=== PATIENT | male | born 1960 | race Asian ===

== ENCOUNTER 2024-02-03 21:34 | Inpatient (IN) | payer OTHER ==
[2024-02-03 21:43] VITALS: BMI 34.7
[2024-02-03] MEDS ORDERED: LACTATED RINGERS SOLUTION 1000 ML INFUS.BAG IV ONE (22:00)
[2024-02-03] MEDS ORDERED: ONDANSETRON 4 MG/2 ML VIAL ONE (22:14)
[2024-02-03] MEDS ORDERED: ACETAMINOPHEN INJECTION 100 ML IVPB ONE (22:14)
[2024-02-03 22:15] LABS: VENOUS BASE EXCESS 0.9 mmol/L (-2-2); VENOUS O2 SATURATION 43.8 % (70-80); VENOUS PCO2 41.3 mmHg (38-52); VENOUS PH 7.41 (7.310-7.410)
[2024-02-03] MEDS: ACETAMINOPHEN 1000 MG/100 ML BAG IVPB ONE (22:19)
[2024-02-03] MEDS: LACTATED RINGERS SOLUTION 1000 ML INFUS.BAG IV ONE (22:20)
[2024-02-03] MEDS: ONDANSETRON 4 MG/2 ML VIAL IVPUSH ONE (22:20)
[2024-02-03 22:21] LABS: BASO % 0.3 % (0-2.0); HEMATOCRIT 43.2 % (35.4-49); HEMOGLOBIN 14.5 GM/dL (11.7-16.9); LYMPH % 7.5 % (8-40); MCH 28.5 pg (25.7-33.7); MCHC 33.5 g/dl (32.0-35.9); MEAN CELL VOLUME 84.9 fl (80-96); MEAN PLT VOLUME 8.6 fl (7.5-11.1); MONO % 5.7 % (3.8-10.2); NEUT % 86.5 % (42.8-82.8); PLATELET COUNT 161 10^3/uL (134-434); RBC 5.09 M/mm3 (4.00-5.60); RDW 14.2 % (11.9-15.9); WHITE BLOOD COUNT 11.2 K/mm3 (4.0-10.0)
[2024-02-03 22:36] LABS: POTASSIUM 3.9 mmol/L (3.5-5.1)
[2024-02-03 22:38] LABS: ALBUMIN 3.8 g/dl (3.4-5.0); CALCIUM 9.1 mg/dL (8.5-10.1); INR 1.1 (0.83-1.09); PROTHROMBIN TIME (PATIENT) 12.6 SEC (9.7-13.0)
[2024-02-03 22:39] LABS: BLOOD UREA NITROGEN 18.1 mg/dL (7-18); MAGNESIUM 1.7 mg/dL (1.8-2.4)
[2024-02-03 22:41] LABS: ACTIVATED PTT 33.4 SECONDS (25.2-36.5)
[2024-02-03 22:42] LABS: CREATININE 1.4 mg/dL (0.55-1.3); PHOSPHOROUS 2.4 mg/dL (2.5-4.9)
[2024-02-03 22:43] LABS: BILIRUBIN,TOTAL 1.4 mg/dL (0.2-1); TOT PROT 7.5 g/dl (6.4-8.2)
[2024-02-03] MEDS ORDERED: NAPH,MB-DB/K PH,MBDB POWDER PACKET ONE (23:06)
[2024-02-03] MEDS ORDERED: MAGNESIUM SULFATE IN WATER 2 GM/50 ML IVPB IVPB ONE (23:06)
[2024-02-03 23:07] LABS: BILIRUBIN,DIRECT 0.4 mg/dL (0.0-0.2)
[2024-02-03] MEDS: NAPH,MB-DB/K PH,MBDB POWDER PACKET PO ONE (23:12)
[2024-02-03] MEDS: MAGNESIUM SULFATE IN WATER 2 GM/50 ML IVPB IVPB ONE (23:12)
[2024-02-04 00:03] LABS: EPI CELLS 14 /uL (0-25.1); HYALINE CASTS 6 /uL (0-3.1); PH,URINE 5.5 (5.0-8.0); URINE APPEARANCE CLEAR; URINE BACTERIA 5 /uL (0-1359); URINE BILIRUBIN NEGATIVE (NEGATIVE); URINE COLOR DK YELLOW; URINE GLUCOSE (UA) 3+ (NEGATIVE); URINE KETONE 1+ (NEGATIVE); URINE LEUK ESTERASE NEGATIVE (NEGATIVE); URINE NITRITE NEGATIVE (NEGATIVE); URINE PROTEIN 2+ (NEGATIVE); URINE RBC 13 /uL (0-23.9); URINE WBC 11 /uL (0-25.8)
[2024-02-04] MEDS ORDERED: ONDANSETRON 4 MG/2 ML VIAL IVPUSH PRN (00:43)
[2024-02-04] MEDS ORDERED: ACETAMINOPHEN INJECTION 100 ML IVPB ONE (03:15)
[2024-02-04] MEDS: ACETAMINOPHEN 1000 MG/100 ML BAG IVPB PRN (03:18)
[2024-02-04] MEDS: INSULIN ASPART SLIDING SCALE (NOVOLOG) 1 VIAL SQ SCH (06:12)
[2024-02-04 08:41] LABS: BASO % 0.3 % (0-2.0); EOS % 0.1 % (0-4.5); HEMATOCRIT 40.5 % (35.4-49); HEMOGLOBIN 13.5 GM/dL (11.7-16.9); LYMPH % 8.3 % (8-40); MCH 28.6 pg (25.7-33.7); MCHC 33.3 g/dl (32.0-35.9); MEAN CELL VOLUME 85.9 fl (80-96); MONO % 5.3 % (3.8-10.2); PLATELET COUNT 155 10^3/uL (134-434); RBC 4.71 M/mm3 (4.00-5.60); RDW 14.1 % (11.9-15.9); WHITE BLOOD COUNT 10.7 K/mm3 (4.0-10.0)
[2024-02-04 08:43] LABS: POTASSIUM 4.1 mmol/L (3.5-5.1)
[2024-02-04 08:49] LABS: CALCIUM 8.7 mg/dL (8.5-10.1)
[2024-02-04 08:50] LABS: ALBUMIN 3.1 g/dl (3.4-5.0); BLOOD UREA NITROGEN 18.4 mg/dL (7-18)
[2024-02-04 08:51] LABS: MAGNESIUM 2.2 mg/dL (1.8-2.4)
[2024-02-04 08:53] LABS: CREATININE 1.1 mg/dL (0.55-1.3); PHOSPHOROUS 2.6 mg/dL (2.5-4.9)
[2024-02-04 08:55] LABS: BILIRUBIN,TOTAL 1.2 mg/dL (0.2-1); TOT PROT 6.5 g/dl (6.4-8.2)
[2024-02-04 10:24] LABS: HIV INTERPRETATION NEGATIVE (NEGATIVE)
[2024-02-04] MEDS: ENOXAPARIN NA (PORCINE) 40 MG/0.4 ML DISP.SYRIN SQ SCH (11:33)
[2024-02-04] MEDS: TAMSULOSIN HCL 0.4 MG CAP PO SCH (11:33)
[2024-02-04] MEDS: ALLOPURINOL 300 MG TABLET (FP) PO SCH (11:33)
[2024-02-04] MEDS: INSULIN (LEVEMIR) 100 UNITS/ML UNITS SQ SCH (12:51)
[2024-02-04] MEDS: LOSARTAN POTASSIUM 50 MG TABLET PO SCH (15:30)
[2024-02-04] MEDS: LACTATED RINGERS SOLUTION 1,000 ML/1,000 ML INFUS.BAG IV SCH (15:30)
[2024-02-04] MEDS: ATORVASTATIN CA 40 MG TABLET (FP) PO SCH (21:53)
[2024-02-05] MEDS: LORazepam 2 MG/ML SDV VIAL IVPUSH ONE (01:25)
[2024-02-05] MEDS: MIDAZOLAM HCL 2 MG/2 ML SINGLE DOSE VIAL IVPUSH ONE (01:46)
[2024-02-05] MEDS: AMPICILLIN - 2 GM in SODIUM CHLORIDE 100 ML IVPB SCH (03:00)
[2024-02-05 09:57] LABS: BASO % 0.3 % (0-2.0); HEMATOCRIT 36.9 % (35.4-49); HEMOGLOBIN 12.4 GM/dL (11.7-16.9); LYMPH % 6.2 % (8-40); MCH 28.7 pg (25.7-33.7); MCHC 33.8 g/dl (32.0-35.9); MEAN PLT VOLUME 9.2 fl (7.5-11.1); MONO % 6.6 % (3.8-10.2); NEUT % 86.9 % (42.8-82.8); PLATELET COUNT 142 10^3/uL (134-434); RBC 4.34 M/mm3 (4.00-5.60); RDW 14.2 % (11.9-15.9); WHITE BLOOD COUNT 9.9 K/mm3 (4.0-10.0)
[2024-02-05 10:13] LABS: INR 1.1 (0.83-1.09); PROTHROMBIN TIME (PATIENT) 12.6 SEC (9.7-13.0)
[2024-02-05 10:34] LABS: CHLORIDE 98 mmol/L (98-107); POTASSIUM 3.8 mmol/L (3.5-5.1); SODIUM 133 mmol/L (136-145)
[2024-02-05 10:47] LABS: ALBUMIN 2.9 g/dl (3.4-5.0); BLOOD UREA NITROGEN 19.7 mg/dL (7-18); SGPT/ALT 28 U/L (13-61)
[2024-02-05 10:48] LABS: ANION GAP 12 mmol/L (4-13); CO2 23 mmol/L (21-32); GLUCOSE,RANDOM 256 mg/dL (74-106); MAGNESIUM 1.9 mg/dL (1.8-2.4)
[2024-02-05 10:49] LABS: BILIRUBIN,TOTAL 1.2 mg/dL (0.2-1); TOT PROT 6.2 g/dl (6.4-8.2)
[2024-02-05 10:50] LABS: ALK PHOS 68 U/L (45-117)
[2024-02-05 10:51] LABS: BILIRUBIN,DIRECT 0.5 mg/dL (0.0-0.2); CREATININE 1.3 mg/dL (0.55-1.3); SGOT/AST 26 U/L (15-37)
[2024-02-05] MEDS: DOXYCYCLINE INJECTION 100 MG in DEXTROSE 5%-WATER 100 ML IVPB SCH (10:57)
[2024-02-05] MEDS: SODIUM CHLORIDE 1,000 ML IV SCH (11:40)
[2024-02-05] MEDS: NAPH,MB-DB/K PH,MBDB POWDER PACKET PO SCH (11:41)
[2024-02-05 16:28] LABS: POTASSIUM 4.3 mmol/L (3.5-5.1)
[2024-02-05 16:30] LABS: BLOOD UREA NITROGEN 17.8 mg/dL (7-18); CALCIUM 8.6 mg/dL (8.5-10.1)
[2024-02-05 16:34] LABS: CREATININE 1.3 mg/dL (0.55-1.3)
[2024-02-05] MEDS: clonazePAM 0.5 MG TABLET PO ONE (17:09)
[2024-02-05] MEDS: POTASSIUM PHOSPHATE 30 MM in SODIUM CHLORIDE 500 ML IVPB ONE (18:06)
[2024-02-05] MEDS: PIPERACILLIN/TAZOB 3.375 GM 3.375 GM in DEXTROSE 5%-WATER - 50 ML IVPB SCH (20:30)
[2024-02-05] MEDS ORDERED: PIPERACILLIN/TAZOBACTAM 3.375 GM VIAL IVPB ONE (20:31)
[2024-02-05 23:48] LABS: BF GLUCOSE (CSF ONLY) 101 mg/dL (40-70)
[2024-02-05 23:57] LABS: CSF APPEARANCE HAZY (CLEAR); CSF COLOR PINK (COLORLESS); CSF WBC 3 mm3 (0-5)
[2024-02-06 09:04] LABS: POTASSIUM 3.8 mmol/L (3.5-5.1)
[2024-02-06 09:10] LABS: CALCIUM 7.9 mg/dL (8.5-10.1)
[2024-02-06 09:13] LABS: CREATININE 1.1 mg/dL (0.55-1.3)
[2024-02-06 09:14] LABS: PHOSPHOROUS 2.6 mg/dL (2.5-4.9)
[2024-02-06] MEDS: traZODone HCL 50 MG TABLET (FP) PO PRN (22:55)
[2024-02-07 08:44] LABS: BASO % 0.2 % (0-2.0); EOS % 0.8 % (0-4.5); HEMATOCRIT 37.2 % (35.4-49); HEMOGLOBIN 12.8 GM/dL (11.7-16.9); LYMPH % 12.7 % (8-40); MCHC 34.5 g/dl (32.0-35.9); MONO % 6.9 % (3.8-10.2); NEUT % 79.4 % (42.8-82.8); PLATELET COUNT 188 10^3/uL (134-434); RBC 4.42 M/mm3 (4.00-5.60); RDW 14.4 % (11.9-15.9); WHITE BLOOD COUNT 8.6 K/mm3 (4.0-10.0)
[2024-02-07 09:16] LABS: POTASSIUM 3.6 mmol/L (3.5-5.1)
[2024-02-07 09:18] LABS: CALCIUM 8.2 mg/dL (8.5-10.1)
[2024-02-07 09:20] LABS: ALBUMIN 2.5 g/dl (3.4-5.0); BLOOD UREA NITROGEN 11.2 mg/dL (7-18)
[2024-02-07 09:22] LABS: CREATININE 1.2 mg/dL (0.55-1.3)
[2024-02-07 09:23] LABS: BILIRUBIN,TOTAL 0.7 mg/dL (0.2-1)
[2024-02-07] MEDS: INSULIN ASPART SLIDING SCALE (NOVOLOG) 1 VIAL SQ SCH (10:54)
[2024-02-08 09:40] LABS: BASO % 0.5 % (0-2.0); EOS % 2.6 % (0-4.5); HEMATOCRIT 38.3 % (35.4-49); HEMOGLOBIN 12.8 GM/dL (11.7-16.9); LYMPH % 15.3 % (8-40); MCH 28.4 pg (25.7-33.7); MCHC 33.3 g/dl (32.0-35.9); MEAN CELL VOLUME 85.3 fl (80-96); MEAN PLT VOLUME 8.5 fl (7.5-11.1); MONO % 6.4 % (3.8-10.2); NEUT % 75.2 % (42.8-82.8); PLATELET COUNT 228 10^3/uL (134-434); RDW 14.5 % (11.9-15.9); WHITE BLOOD COUNT 7.1 K/mm3 (4.0-10.0)
[2024-02-08 09:53] LABS: POTASSIUM 3.8 mmol/L (3.5-5.1)
[2024-02-08 09:59] LABS: CALCIUM 8.5 mg/dL (8.5-10.1)
[2024-02-08 10:00] LABS: ALBUMIN 2.5 g/dl (3.4-5.0); BLOOD UREA NITROGEN 8.9 mg/dL (7-18); MAGNESIUM 2.1 mg/dL (1.8-2.4)
[2024-02-08 10:03] LABS: CREATININE 1.1 mg/dL (0.55-1.3)
[2024-02-08 10:05] LABS: TOT PROT 6.1 g/dl (6.4-8.2)
[2024-02-08 10:32] LABS: BILIRUBIN,TOTAL 0.6 mg/dL (0.2-1)
[2024-02-08 10:51] VITALS: RESP 18
[2024-02-08 14:18] VITALS: BP 134/74; PULSE 84; TEMP 97.7
[2024-02-08 15:11] LABS: WEST NILE VIRUS AB SERUM,IGM Negative (Negative)
[2024-02-12 12:07] LABS: LYME PCR CSF Negative (Negative)
== END 2024-02-08 16:22 | disposition home or self-care (01) | DRG 392 ==
LOC: JER 21:34 → JERBED 02-04 00:57 → J8W 02-04 03:45 → OBSVTOIN 02-05 09:56
PROVIDERS: ADMIT Internal Medicine; ATTEND Nurse Practitioner Acute Care
PROC: 009U3ZZ Drainage of Spinal Canal, Percutaneous Approach (ICD-10-PCS; principal; 2024-02-05)
DX: A08.4 Viral intestinal infection, unspecified (principal); N17.9 Acute kidney failure, unspecified; E87.1 Hypo-osmolality and hyponatremia; E11.65 Type 2 diabetes mellitus with hyperglycemia; E78.5 Hyperlipidemia, unspecified; N28.89 Other specified disorders of kidney and ureter; N40.0 Benign prostatic hyperplasia without lower urinary tract symptoms; I10 Essential (primary) hypertension; R50.9 Fever, unspecified; D72.829 Elevated white blood cell count, unspecified; E83.39 Other disorders of phosphorus metabolism; E86.1 Hypovolemia; R51.9 Headache, unspecified; R00.0 Tachycardia, unspecified; R53.81 Other malaise
CPT/HCPCS: 0241U-QW; 36415; 70450-TC; 71045-TC-FY; 74178-TC; 76775-TC; 80048; 80053; 80076; 81003; 82010; 82248; 82784; 82803; 82945; 82962; 83036; 83605; 83735; 83930; 84100; 84157; 84484; 85025; 85610; 85730; 86140; 86592; 86663; 86664; 86665; 86694; 86735; 86765; 86787; 86788; 86789; 86803; 86850; 86900; 86901; 87040; 87045; 87046; 87070; 87086; 87102; 87116; 87205; 87206; 87207; 87210; 87252; 87324; 87389; 87449; 87476; 87529; 87798; 87899; 93005; 93010; 93306-TC; 99285-25; G0378; J0131